=== PATIENT | female | born 1975 | race Caucasian/White ===

== ENCOUNTER 2017-07-01 11:26 | Outpatient (CLI) | payer OTHER ==
--- NOTE | 2017-07-01 12:19 | RAD ---
THREE VIEWS LUMBAR SPINE: Date: 07-01-17 Comparison: None. History: Right sided back pain, right lower extremity radiculopathy. FINDINGS: Two oval hypodensities overlie the right lower quadrant suggesting content within the colon. Five lumbar type vertebral bodies are present. The pedicles appear intact on the frontal imaging. Darren tebral body height and alignment appears normal on the lateral view. There is mild disc space narrowing at L4-5 and L5-S1. There is mild anterior osteophyte formation at L2-3, L3-4, L4-5 and L5-S1. No acute osseous abnormality is seen. IMPRESSION: No acute osseous abnormality. POS: [facility]
== END 2017-07-01 11:27 | disposition home or self-care (01) ==
LOC: SCSRAD 11:26
PROVIDERS: ATTEND Nurse Practitioner Family
DX: M54.5 Low back pain (principal)
CPT/HCPCS: 72100

== ENCOUNTER 2017-08-12 10:49 | Outpatient (CLI) | payer OTHER ==
--- NOTE | 2017-08-12 15:07 | MRI ---
MRI OF THE LUMBAR SPINE WITHOUT IV CONTRAST: INDICATIONS: Low back pain with right leg and right hip pain. COMPARISON: Lumbar spine radiograph dated 07/01/2017. FINDINGS: The conus is seen to terminate at approximately L1. 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 One of the largest is seen within the right S2 n eural foramen, measuring 2.5 cm. 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 There is a 2.4 cm mixed signal intensity lesion involving the left adnexa with some diminished signal seen within the lower aspect of the lesion, suspicious for a hemorrhagic cyst. At L5-S1, there is a broad-based bulge with facet hypertrophy inducing mild bilateral neural foramina l narrowing. At L4-L5, there is a broad-based bulge with a superimposed right central to paracentral extrusion. T he extrusion extends down to the posterolateral aspect of L5 approximately 7 mm. The extrusion does approach and contact the right L5 nerve root without definite compression. At L3-L4, there is no appreciable central canal or neural foraminal narrowing. At L2-L3, there is no appreciable central canal or neural foraminal narrowing. At L1-L2, there is no appreciable central canal or neural foraminal narrowing. At T12-L1, there is a slightly prominent parameningeal cyst on the left. IMPRESSION: 1. Multilevel spondylosis of the lumbar spine. There is a right paracentral inferior projecting dis k extrusion at L4-L5 causing contact of the traversing right L5 nerve root without definite compressi on. 2. Mild bilateral neural foraminal narrowing at L5-S1. 3. Complex cystic lesion involving the left adnexa, which may reflect a hemorrhagic cyst. Recommend pelvic ultrasound followup in six to eight weeks. CODE T POS: [facility]
== END 2017-08-12 10:50 | disposition home or self-care (01) ==
LOC: TBSIIMAG 10:49
PROVIDERS: ATTEND Neurological Surgery
DX: M51.36 Other intervertebral disc degeneration, lumbar region (principal); M47.816 Spondylosis without myelopathy or radiculopathy, lumbar region; M99.43 Connective tissue stenosis of neural canal of lumbar region; M99.4 Connective tissue stenosis of neural canal; N83.8 Other noninflammatory disorders of ovary, fallopian tube and broad ligament
CPT/HCPCS: 72148

== ENCOUNTER 2017-12-06 14:52 | Outpatient (CLI) | payer OTHER | END 2017-12-06 14:53 | disposition home or self-care (01) | LOC: BICMAMMO 14:52 | PROVIDERS: ATTEND Obstetrics & Gynecology | DX: Z12.31 Encounter for screening mammogram for malignant neoplasm of breast (principal); N64.89 Other specified disorders of breast | CPT/HCPCS: 77063; 77067 ==

== ENCOUNTER 2018-12-19 15:32 | Outpatient (CLI) | payer BC ==
--- NOTE | 2018-12-19 16:05 | MMO ---
Bilateral MAMMO Bilat Screen [facility]. CLINICAL HISTORY: Patient is 43 years old and is seen for screening. The patient has no family history of breast cancer. The patient has no personal history of cancer. The patient has a history of right Excisional Biopsy at age 1 - benign. VIEWS: The views performed were: bilateral craniocaudal with tomosynthesis and bilateral mediolateral oblique with tomosynthesis. FILMS COMPARED: The present examination has been compared to prior imaging studies performed at [facility] on 10/22/2008 and 12/06/2017. MAMMOGRAM FINDINGS: The breasts are heterogeneously dense, which could obscure a lesion on mammography. There are no suspicious masses, suspicious calcifications, or new areas of architectural distortion. IMPRESSION: THERE IS NO MAMMOGRAPHIC EVIDENCE OF MALIGNANCY. A ROUTINE FOLLOW-UP MAMMOGRAM IN 1 YEAR IS RECOMMENDED. THE RESULTS OF THIS EXAM WERE SENT TO THE PATIENT. ACR BI-RADS Category 1 - Negative MAMMOGRAPHY NOTE: 1. A negative mammogram report should not delay a biopsy if a dominant of clinically suspicious mass is present. 2. Approximately 10% to 15% of breast cancers are not detected by mammography. 3. Adenosis and dense breasts may obscure an underlying neoplasm.
== END 2018-12-19 15:33 | disposition home or self-care (01) ==
LOC: BICMAMMO 15:32
PROVIDERS: ATTEND Obstetrics & Gynecology
DX: Z12.31 Encounter for screening mammogram for malignant neoplasm of breast (principal)
CPT/HCPCS: 77063; 77067

== ENCOUNTER 2020-11-14 08:13 | Outpatient (CLI) | payer BC | END 2020-11-14 08:14 | disposition home or self-care (01) | LOC: BICMAMMO 08:13 | PROVIDERS: ATTEND Obstetrics & Gynecology | DX: Z12.31 Encounter for screening mammogram for malignant neoplasm of breast (principal) | CPT/HCPCS: 77063; 77067 ==